=== PATIENT | female | born 1985 | race Caucasian/White ===

== ENCOUNTER 2020-05-14 04:09 | Inpatient (IN) | payer SELFPAY ==
[~2020-05-14] VITALS: Ht 160 cm; Wt 81.5 kg
[~2020-05-14 04:09] MED LIST: BACTRIM DS 8001 TAB PO; LORTAB 5/500 501 TAB PO; MACROBID 1100 MG/CAP PO; NO HOME MEDICATIONS; NORCO 325 MG-51 TAB PO; PEPCID 20MG TAB20 MG PO; PHENERGAN 25 TA25 MG PO; PRENATAL 1 VITA1 TAB PO; PRENATAL1 TA1 PO; SEPTRA DS 8001 TAB PO; ZOFRAN4 M1 PO
[2020-05-14 05:10] LABS: BASO % 0.1 % (0.0-2.0); GRAN # 7.6 (1.4-6.5); GRAN % 88.9 % (42.2-75.2); HEMATOCRIT 40.5 % (37.0-47.0); HEMOGLOBIN 13.6 g/dl (12.5-16.0); LYMPH # 0.7 (1.2-3.4); LYMPH % 7.6 % (20.0-51.0); MEAN CELL VOLUME 86 fl (80.0-100.0); MEAN CORPUSCULAR HEMOGLOBIN 29 pg (27.0-31.0); MEAN CORPUSCULAR HGB CONC 34 g/dl (33.0-37.0); MEAN PLATELET VOLUME 9.7 fl (7.4-10.4); MONO # 0.2 (0.1-0.6); MONO % 2.8 % (1.7-9.3); PLATELET COUNT 233 K/mm3 (130-400); REDCELL DISTRIBUTION WIDTH-CV 13.2 % (11.5-14.5)
[2020-05-14 05:34] LABS: ARTERIAL BLD GAS O2 SATURATION 85.7 % (92-100); ARTERIAL BLD GAS TCO2 CT 23.4; ARTERIAL BLOOD GAS BASE EXCESS -0.5 (-2-2); ARTERIAL BLOOD GAS HCO3 22.4 meq/L (22-26); ARTERIAL BLOOD GAS PCO2 31.7 mmHg (35-45); ARTERIAL BLOOD GAS PO2 52.1 mmHg (80-100); ARTERIAL BLOOD GAS pH 7.47 (7.35-7.45)
[2020-05-14 05:53] LABS: BILIRUBIN,TOTAL 0.6 mg/dL (0.0-1.0); CALCIUM 8.6 mg/dL (8.4-10.2); CREATININE, serum 0.7 (0.52-1.25); MAGNESIUM 2.1 mg/dL (1.6-2.3); POTASSIUM 3.3 mmol/L (3.4-5.0); TOTAL PROTEIN 7.4 gm/dL (6.4-8.2)
[2020-05-14 06:11] LABS: C-REACTIVE PROTEIN 22.9 mg/dL (0.0-0.9)
[2020-05-14 08:59] LABS: COLLECTION METHOD CLEAN CATCH
[2020-05-14 09:14] LABS: MUCOUS Present /lpf; PH 6 (5-8); SQUAMOUS EPITHELIAL 0-2 /hpf; URINE APPEARANCE Clear; URINE BACTERIA Rare /hpf; URINE BILIRUBIN Negative (NEGATIVE); URINE BLOOD 2+ (NEGATIVE); URINE COLOR Yellow; URINE GLUCOSE Negative (NEGATIVE); URINE KETONE Trace (NEGATIVE); URINE LEUKOCYTE ESTERASE Trace (NEGATIVE); URINE NITRATE Positive (NEGATIVE); URINE PROTEIN(semi-quant) 1+ (NEGATIVE); URINE UROBILINOGEN Negative (NEGATIVE)
[2020-05-14] MEDS ORDERED: TYLENOL 8 HR PO (10:09)
[2020-05-14] MEDS ORDERED: MOTRIN 400400 MG/TAB PO (10:11)
--- NOTE | 2020-05-14 15:00 | NUR ---
THE PT IS ORIENTED TO THE ROOM AND SAFETY/FALL PRECAUTIONS. THE PT IS ORIENTED TO THE USE OF THE CALL LIGHT AND MEAL TIMES. THE PT DENIES HAVING ANY QUESTIONS OR CONCERNS. THE PT ALSO DENIES NEEDING TO SEND ANY VALUABLES TO THE SAFE.
--- NOTE | 2020-05-14 15:11 | NUR ---
THE PT IS ADMITTED TO THE UNIT FROM THE ER. THE PT IS ALERT AND ORIENTED AND HOLDS APPROPRIATE CONVERSATION REGARDING HER ADMISSION. THE PT IS CURRENTLY ON 4L OF OXYGEN VIA MASK. RESPIRATIONS ARE EVEN AND UNLABORED AND BREATH SOUNDS ARE NOTED TO BE CLEAR ON AUSCULTATION TO ALL LOBES. THE PT DENIES ANY PAIN OR NAUSEA AT THIS TIME. THE PT REQUESTS THAT I NOTIFY HER OF HER ADMISSION. THIS RN WILL ATTEMPT TO CONTACT HER AT THIS TIME AT THE PHONE NUMBER PROVIDED.
--- NOTE | 2020-05-14 15:15 | NUR ---
THE PT'S , GLENN, IS CONTACTED AT THIS TIME PER THE PT'S REQUEST. HE DENIES HAVING ANY QUESTIONS OR CONCERNS AT THIS TIME.
[2020-05-14 15:46] VITALS: BP 135/80; PULSE 76; TEMP 99.2
--- NOTE | 2020-05-14 16:10 | NUR ---
THE PT IS SWITCHED FROM A SIMPLE MASK TO A NASAL CANNULA FOR OXYGEN DELIVERY. THE PT IS WEANED FROM 4L TO 3L AT THIS TIME. THE PT REMAINS AT 94% OR ABOVE ON 3L. WILL CONTINUE TO MONITOR.
--- NOTE | 2020-05-14 16:43 | NUR ---
THIS RN ATTEMPTS TO CONTACT DR. BRAR TO INFORM OF PENDING INFECTIOUS DISEASE CONSULT. THERE IS NO ANSWER AT THE NUMBER LISTED FOR PROVIDER. THIS RN WILL ATTEMPT TO CALL AGAIN.
--- NOTE | 2020-05-14 18:03 | NUR ---
THIS RN ATTEMPTS TO CONTACT DR. BRAR, A VOICEMAIL IS LEFT WITH THE DESK PHONE NUMBER A CALL BACK NUMBER. THIS IS THE SECOND CONTACT ATTEMPT FOR AN INFECTIOUS DISEASE CONSULT.
--- NOTE | 2020-05-14 18:52 | NUR ---
REPORT GIVEN TO SANTI LITTLEJOHN.
[2020-05-14 21:01] VITALS: BP 92/58; PULSE 90; TEMP 99
--- NOTE | 2020-05-14 23:01 | NUR ---
Patient alert and oriented. denies any pain. complain of general malaise and difficulty taking deep breath. Saturation at 90 on 3L O2, increased O2 to 5L, patient at 92%. SBP 90's. Provided Covid19 education to patient. Patient was advise to inform staff of any increase in SOA, difficulty breathing. Family brought some belonging(clothes , undergarment) for patient. Patient resting in bed at this time.
[2020-05-14 23:16] VITALS: BP 92/57; PULSE 81; TEMP 98.6
[2020-05-15 04:08] VITALS: BP 100/65; PULSE 89; TEMP 98
--- NOTE | 2020-05-15 05:53 | NUR ---
Patient is afebrile. [id number]. on 5L O2 @ 93 - 94%. night was uneventful. Patient resting in bed at this time.
[2020-05-15 06:02] LABS: BASO % 0.2 % (0.0-2.0); GRAN # 10.5 (1.4-6.5); GRAN % 86.1 % (42.2-75.2); HEMATOCRIT 38.8 % (37.0-47.0); HEMOGLOBIN 12.6 g/dl (12.5-16.0); LYMPH % 8.4 % (20.0-51.0); MEAN CELL VOLUME 87 fl (80.0-100.0); MEAN CORPUSCULAR HEMOGLOBIN 28 pg (27.0-31.0); MEAN CORPUSCULAR HGB CONC 33 g/dl (33.0-37.0); MEAN PLATELET VOLUME 10.3 fl (7.4-10.4); MONO # 0.5 (0.1-0.6); PLATELET COUNT 288 K/mm3 (130-400); RED BLOOD COUNT 4.44 M/mm3 (4.10-5.30); REDCELL DISTRIBUTION WIDTH-CV 13.5 % (11.5-14.5)
[2020-05-15 06:06] LABS: CALCIUM 8.2 mg/dL (8.4-10.2); CREATININE, serum 0.58 (0.52-1.25); POTASSIUM 3.5 mmol/L (3.4-5.0)
[2020-05-15 07:32] VITALS: BP 98/62; PULSE 79; TEMP 98.1
--- NOTE | 2020-05-15 07:39 | NUR ---
Lying in bed watching TV. Alert and oriented x4. Denies pain at this time. Says that she feels tired and weak. Occasional nonproductive cough. Oxygen on at 5L/NC. Does get short of air with activity. Lung sounds clear in upper lobes, diminished in lower lobes. Patient says that she has had some diarrhea through the night. Denies additional needs at this time.
[2020-05-15 10:56] VITALS: BP 99/68; PULSE 88; TEMP 97.8
--- NOTE | 2020-05-15 10:56 | NUR ---
Patient received a phone call from family that her aunt has , unknown what cause of was. Patient very emotional and tearful at this time. Reassurance provided. Administer Ativan per Dr. Victoria order at this time. Oxygen at 6L/NC at this time, SpO2 at 90%. Encouraged patient to cough and take deep breaths at this time. Patient did not eat breakfast. Has oatmeal at bedside that she would like to keep to try to continue to work on eating it. Provided applesauce per patient request. Patient does not want to shower or do bed bath today. Will do oral care. Denies additional needs at this time.
--- NOTE | 2020-05-15 11:30 | NUR ---
Lying in bed watching TV. Feels more calm since the medication. Denies pain. Becomes short of air with activity and the patient says that she gets little dizzy with activity as well. Denies additional needs at this time.
--- NOTE | 2020-05-15 13:12 | NUR ---
SW met with patient via telephone to complete assessment. Patient indicated that she currently lives in [facility] with her hisband Villa [phone] as care support and her EMR. Patient reports that she is pretty independent with ADL's although she has difficulty walking and uses a walker. Patient denied having a DPOA and declined one at this time. Patient reports that she is seen by a nurse at the [facility] with no upcoming appointments. Patient indicated that she gets her medications from [facility] with no concerns. Patient did indicated having home services at this time, however indicated that she did not know who. SW did contact patients who denied that patient had home health, he reports that he is able to take care of his . Patient is self pay, and fill probably need financial fors. STEPHANIA will cotninue to follow.
[2020-05-15 15:46] VITALS: BP 110/59; PULSE 88; TEMP 98.1
--- NOTE | 2020-05-15 16:02 | NUR ---
Beronica RN, in room to see patient. Having nausea. This nurse speaks with Dr. Victoria and orders received for Zofran. Beronica administers at this time. Patient denied any additional needs.
--- NOTE | 2020-05-15 17:03 | NUR ---
Lying in bed watching TV. Continues to have some nausea. Explain how often she is able to have the Zofran. Patient verbalizes understanding and denies additional needs at this time.
--- NOTE | 2020-05-15 18:33 | NUR ---
Patient continues to have nausea. Has a headache. Will administer Tylenol if able and will need to call provider to see if there is another med that can be given for the nausea. Patient lying in bed watching TV. Oxygen at 6L/NC. Denies additional needs at this time.
--- NOTE | 2020-05-15 18:44 | NUR ---
Spoke with ORALIA Kulkarni, and orders received for phenergan.
--- NOTE | 2020-05-15 19:41 | NUR ---
SHIFT REPORT RECIEFED. PT ROUNDED ON SHORTLY AFTER. RESTING IN BED. REPORTS MODERATE TO SEVERE NAUSEA, DIZINESS WITH ACTIVITY AND FEELING 'BAD'. WILL REVIEW ORDERS. AOX4. OXYGEN CANULA ON.
[2020-05-15 19:49] VITALS: BP 113/72; PULSE 75; TEMP 97.9
--- NOTE | 2020-05-15 20:58 | NUR ---
BEDTIME MEDS GIVEN. PT aox4. DENIES PAIN. PHENEGRAN PREPARED AND GIVEN TO PT. ABLE TO MAKE NEEDS KNOWN BUT MILD LANGUAGE BARRIER NOTED. EDUCATED ON LOVENOX AGAIN. NO EMESIS. DENIES NEED FOR BATHROOM AT THIS TIME. LT HAND IV INTACT. WILL ATTEMPT JELLOW AFTER STOMACH SETTLES. REPORTS ONE FORMED BM TODAY
[2020-05-16] VITALS (7 sets, daily range): BP systolic 99–111; BP diastolic 55–76; PULSE 65–89; TEMP 97.3–98.1
--- NOTE | 2020-05-16 02:59 | NUR ---
pt rounded on and currently asleep. call light within reach. IV disconnected. no s/s distress. bed alarm on
--- NOTE | 2020-05-16 07:40 | NUR ---
Lying in bed with eyes open. Alert and oriented x4. Denies pain. COntinues to have nausea, will see if patient can have some medication for this. SpO2 at 88% on 5.5L/NC, increased to 6L/NC and SpO2 increased to 90%. Patient gets short of air with activity. Occasional diarrhea. Denies additional needs at this time.
--- NOTE | 2020-05-16 08:20 | NUR ---
IV phenergan administered at this time as prescribed.
--- NOTE | 2020-05-16 08:55 | NUR ---
Phenergan has infused. Patient says that the medication is already helping to alleviate her nausea. Denies additional needs at this time.
--- NOTE | 2020-05-16 09:19 | NUR ---
Receive call from Corrie on behalf of the patient's spouse Villa to see how the patient is doing. Ask the patient if I can speak with Corrie in regards to her health care. Patient agrees. Provided update on patient status.
--- NOTE | 2020-05-16 10:50 | NUR ---
Lying in bed with eyes open watching TV. Denies pain. Feeling a little better. Declines shower or bed bath at this time and will call when she is done eating to brush her teeth. Denies additional needs at this time.
--- NOTE | 2020-05-16 13:55 | NUR ---
Corrie calls on behalf of the spouse Villa, he does not speak [place], for patient update. Provided update.
--- NOTE | 2020-05-16 16:18 | NUR ---
Arlin with [employer] has been consulted and to complete FAA with patient.
--- NOTE | 2020-05-16 16:29 | NUR ---
Lying in bed with eyes open. Feeling a little better at this time. Still on oxygen at 6L/NC. Asks about weather. Discuss with the patient the weather and open curtain for patient to see outside. Patient denies additional needs at this time.
--- NOTE | 2020-05-16 19:27 | NUR ---
shift report received. pt resting in bed. awake. reports feeling ok and no needs at this time.
--- NOTE | 2020-05-16 20:46 | NUR ---
bedtime meds given. pt AOX4. denies pain. reports mild nausea but better overall. ozfran given. reports normal stool x1 during day. tolerated 40% dinner. no SOB noted. will cont to monitor.
[2020-05-17 03:22] VITALS: BP 107/64; PULSE 76; TEMP 97.5
[2020-05-17 06:53] LABS: HEMATOCRIT 40.1 % (37.0-47.0); HEMOGLOBIN 13.2 g/dl (12.5-16.0); MEAN CELL VOLUME 87 fl (80.0-100.0); MEAN CORPUSCULAR HEMOGLOBIN 29 pg (27.0-31.0); MEAN CORPUSCULAR HGB CONC 33 g/dl (33.0-37.0); MEAN PLATELET VOLUME 10.8 fl (7.4-10.4); PLATELET COUNT 356 K/mm3 (130-400); RED BLOOD COUNT 4.61 M/mm3 (4.10-5.30); REDCELL DISTRIBUTION WIDTH-CV 13.3 % (11.5-14.5)
[2020-05-17 07:04] LABS: CALCIUM 8.3 mg/dL (8.4-10.2); CREATININE, serum 0.58 (0.52-1.25); POTASSIUM 3.7 mmol/L (3.4-5.0)
[2020-05-17 08:38] VITALS: BP 107/65; PULSE 75; TEMP 97.8
[2020-05-17 08:57] LABS: BAND 6 % (0-10); LYMPHOCYTE 20 % (20.0-51.0); METAMYELOCYTE 2 % (0-0); MYELOCYTE 1 % (0-0); NEUTROPHILS 65 % (42.0-75.2); PLATELET ESTIMATE NORMAL (NORMAL)
--- NOTE | 2020-05-17 09:14 | NUR ---
Assessment completed, alert/oriented, vital signs stable, reports moderated continuous headache/ Tylenol given per request, patient continues to report nausea without any vomitting/ Zofran given, abd is soft and BS +, denies any diarrhea, no resp.difficulty noted at rest/ some SOA with exertion and ambulation, fine crackles noted but air exchange is good bilaterally, she is requiring 7L.O2, heart RRR, distal pulses are palpable, she is tolearting some PO intake and is keeping PO fluids down, denies other needs at this time
[2020-05-17 12:00] VITALS: BP 120/80; PULSE 70; TEMP 98
--- NOTE | 2020-05-17 13:53 | NUR ---
The patient is COVID-19 positive. Car Usher contacted the patient via cell phone to discuss the discharge plan. The patient plans to return home at discharge. The patient is currently on oxygen and may need it at discharge. STEPHANIA discussed completing a financial assistance application. She was agreeable to signing the FAA form. STEPHANIA contacted Arlin. She reports that she will look into the paperwork she has on the patient, the FAA may be completed. If the paperwork is not completed this STEPHANIA will collaborate with Arlin to ensure to get signatures for the FAA application.
--- NOTE | 2020-05-17 14:22 | NUR ---
Arlin Morrissey with finance reports the patient has completed her financial assistance application. Arlin to give a copy to this SW.
[2020-05-17 16:30] VITALS: BP 119/61; PULSE 69; TEMP 98.2
[2020-05-17 19:33] VITALS: BP 103/55; PULSE 76; TEMP 97.9
[2020-05-17 23:15] VITALS: BP 103/59; PULSE 68; TEMP 98
[2020-05-18] VITALS (7 sets, daily range): BP systolic 90–111; BP diastolic 45–64; PULSE 57–73; TEMP 97.9–98.7
--- NOTE | 2020-05-18 09:50 | NUR ---
Assessment completed, alert/oriented, vital signs stable, denies headache this morning, reports nasuea is improved as well, patient has non-productive cough, lungs diminished but CTA, O2 is turned down to 3L. and sats WNL, patient reports feeling better overall this mroning, she is eating and drinking breakfast, denies other needs at this time
--- NOTE | 2020-05-18 09:51 | NUR ---
The patient may be needing oxygen at discharge. STEPHANIA faxed HNP, facesheet, and the financial assistance application to [facility]. Will continue to monitor for oxygen needs.
--- NOTE | 2020-05-18 19:08 | NUR ---
Received report from Jaren. Seen patient awake, lying in bed. She denies pain. Call light within reach. No needs at this time.
--- NOTE | 2020-05-18 20:25 | NUR ---
Assesment done. Patient on O2 at 3lpm via NC. Rechecked her blood pressure as it was low awhile ago. With INT on left hand. No complains of nausea or vomiting.
[2020-05-19 04:08] VITALS: BP 106/66; PULSE 60; TEMP 98.4
--- NOTE | 2020-05-19 06:14 | NUR ---
Patient had uneventful night. She is afebrile. She denies pain. Still on O2 at 3lpm via/NC.
[2020-05-19 07:25] LABS: HEMATOCRIT 44.2 % (37.0-47.0); HEMOGLOBIN 14.5 g/dl (12.5-16.0); MEAN CELL VOLUME 89 fl (80.0-100.0); MEAN CORPUSCULAR HEMOGLOBIN 29 pg (27.0-31.0); MEAN CORPUSCULAR HGB CONC 33 g/dl (33.0-37.0); MEAN PLATELET VOLUME 11.1 fl (7.4-10.4); RED BLOOD COUNT 4.99 M/mm3 (4.10-5.30); REDCELL DISTRIBUTION WIDTH-CV 13.2 % (11.5-14.5)
[2020-05-19 07:32] LABS: CREATININE, serum 0.59 (0.52-1.25); POTASSIUM 4.2 mmol/L (3.4-5.0)
[2020-05-19 07:34] LABS: PLATELET COUNT 533 K/mm3 (130-400)
[2020-05-19 08:49] LABS: BAND 2 % (0-10); LYMPHOCYTE 18 % (20.0-51.0); NEUTROPHILS 75 % (42.0-75.2); PLATELET ESTIMATE INCREASED (NORMAL)
[2020-05-19 13:00] VITALS: PULSE 82; TEMP 98.3
[2020-05-19 17:00] VITALS: BP 123/84; PULSE 75
--- NOTE | 2020-05-19 17:59 | NUR ---
patient doing very well this afternoon and feeling ready to go home, she has been off oxygen and on room air sence around 1300, o2 sats are room air have been 92-93%, she is hoping to discharge home tommorow
[2020-05-19 20:00] VITALS: BP 100/61; PULSE 86; TEMP 98.1
--- NOTE | 2020-05-19 20:00 | NUR ---
Shift report received from SANTI Eastman. Assessment complete at this time. Patient is resting in bed, on room air and is satting 93% with no increased work of breathing. She has no complaints of N/V or pain. She is afebrile. No new concerns at this time. Dr. Manrique updated on patient's status.
[2020-05-19 23:58] VITALS: BP 94/53; PULSE 83; TEMP 97.7
[2020-05-20 03:55] VITALS: BP 102/63; PULSE 82; TEMP 97.7
[2020-05-20 07:00] LABS: HEMATOCRIT 44.2 % (37.0-47.0); HEMOGLOBIN 14.5 g/dl (12.5-16.0); MEAN CELL VOLUME 88 fl (80.0-100.0); MEAN CORPUSCULAR HEMOGLOBIN 29 pg (27.0-31.0); MEAN CORPUSCULAR HGB CONC 33 g/dl (33.0-37.0); MEAN PLATELET VOLUME 12.4 fl (7.4-10.4); PLATELET COUNT 548 K/mm3 (130-400); REDCELL DISTRIBUTION WIDTH-CV 13.2 % (11.5-14.5)
[2020-05-20 07:07] LABS: CALCIUM 9.2 mg/dL (8.4-10.2); CREATININE, serum 0.54 (0.52-1.25)
[2020-05-20 07:57] LABS: BAND 2 % (0-10); LYMPHOCYTE 12 % (20.0-51.0); METAMYELOCYTE 3 % (0-0); MYELOCYTE 2 % (0-0); NEUTROPHILS 73 % (42.0-75.2)
[2020-05-20 07:58] LABS: PLATELET ESTIMATE INCREASED (NORMAL)
[2020-05-20 09:22] VITALS: BP 97/62; PULSE 87; TEMP 97.9
--- NOTE | 2020-05-20 09:44 | NUR ---
Pt assessment complete. Pt sitting up in bed upon entry, she is A/O x4. Her breathing is even and unlabored on RA. Pt reports occasional SOB, with intermittent cough. No pain at this time. Denies N/V. No diarrhea at this time. POC discussed with patient who verbalizes understanding. No needs at this time. Call light within reach.
[2020-05-20] MEDS ORDERED: DOXYCYCLINE 10100 MG PO (10:18)
[2020-05-20] MEDS ORDERED: DECADRON6 MG PO (10:18)
--- NOTE | 2020-05-20 12:31 | NUR ---
The patient is to discharge back home with her today, 05/20. RT notified SW that an exercise oximetry was ordered for the patient and she did not qualify for oxygen. No additional needs at this time.
--- NOTE | 2020-05-20 13:00 | NUR ---
Discharge instructions and paperwork reviewed with patient. IV to L hand dc'd catheter tip intact. Pt wheeled out of facility at this time.
== END 2020-05-20 13:00 | disposition home or self-care (01) | DRG 177 ==
LOC: COL.ER 04:09 → PEDS 07:06 → EDBEDREQ 13:34 → PEDS 05-20 13:00
PROVIDERS: Family Medicine; Physician Assistant; Student in an Organized Health Care Education/Training Program; ADMIT Family Medicine
PROC: XW033E5 Introduction of Remdesivir Anti-infective into Peripheral Vein, Percutaneous Approach, New Technology Group 5 (ICD-10-PCS; principal; 2020-05-14)
DX: U07.1 COVID-19 (principal); J12.89 Other viral pneumonia; J96.01 Acute respiratory failure with hypoxia; R65.10 Systemic inflammatory response syndrome (SIRS) of non-infectious origin without acute organ dysfunction; N39.0 Urinary tract infection, site not specified; K29.60 Other gastritis without bleeding
CPT/HCPCS: 99232-AI; 99233-AI; 99239; J0696; J1100; J1170; J1650; J2405; J2550; J7030; J7050; J8540; Q9967

== ENCOUNTER → 2020-11-08 | Outpatient (CLI) | payer OTHER ==
[~2020-11-08] MED LIST changes: +DECADRON6 MG PO; +DOXYCYCLINE 10100 MG PO; +MOTRIN 400400 MG/TAB PO; +TYLENOL 8 HR PO
== END ==
LOC: MC.RAD 13:20
DX: N63.21 Unspecified lump in the left breast, upper outer quadrant (principal)